=== PATIENT | female | born 1990 | race Caucasian/White ===

== ENCOUNTER 2017-12-28 10:15 | Inpatient (IN) | payer BC ==
[~2017-12-28] VITALS: Ht 165.1 cm; Wt 74.8 kg
[2017-12-28] VITALS (18 sets, daily range): BP systolic 80–106; BP diastolic 49–91; Ht 165.1 cm; Wt 74.8 kg
[~2017-12-28 10:15] MED LIST: ACET-2007 PO; DOCU240C67 PO; IBUP800T37 PO; Lanolin TP; PER PO; PREN-127 PO
[2017-12-28] MEDS ORDERED: FAMOTIDINE(*) 20MG/50ML PREMIX 50 ML IVPB PRN (10:16)
[2017-12-28] MEDS ORDERED: OXYTOCIN 30 UNIT/LR 500 ML 500 ML IV PRN (10:16)
[2017-12-28] MEDS ORDERED: fentaNYL CITR 100 MCG/2 ML AMP IVP PRN (10:20)
[2017-12-28] MEDS ORDERED: METOCLOPRAMIDE 10 MG/2 ML SDV IVP PRN (10:20)
[2017-12-28] MEDS ORDERED: FLUSH 10 ML SYR IVP PRN (10:20)
[2017-12-28] MEDS ORDERED: LIDOCAINE 1% LOCAL 300 MG/30ML INJ PRN (10:20)
[2017-12-28] MEDS ORDERED: cefOXitin/DEX(*) 2GM/50ML PREM 50 ML IVPB PRN (10:20)
[2017-12-28] MEDS: LR(*) 1000 ML BAG 1,000 ML IV SCH ×2 (11:08→15:47)
[2017-12-28 11:16] LABS: PLATELET COUNT, AUTOMATED 230 K/uL (150-450)
[2017-12-28] MEDS ORDERED: fentaNYL CITR 100 MCG/2 ML AMP IT PRN (12:55)
[2017-12-28] MEDS ORDERED: LIDO/EPI 2% MPF 1:200,000 20ML EPI PRN (12:55)
[2017-12-28] MEDS ORDERED: FENTANYL/ROPIVACAINE 100 ML BAG EPI PRN (12:55)
[2017-12-28] MEDS ORDERED: BUPIVACAINE 0.5% INJ 30ML VIAL EPI PRN (12:55)
[2017-12-28] MEDS ORDERED: LIDOCAINE/PF 2% 200MG/10ML AMP 200 MG/10 ML AMPUL EPI PRN (12:55)
[2017-12-28] MEDS ORDERED: BUPIVACAINE 0.25% MPF INJ EPI PRN (12:55)
[2017-12-28] MEDS ORDERED: EPIDURAL KEYS XX PRN (14:00)
[2017-12-28] MEDS ORDERED: LR(*) 1000 ML BAG 1,000 ML IV SCH (14:48)
[2017-12-28] MEDS ORDERED: cefOXitin/DEX(*) 2GM/50ML PREM 50 ML IVPB ONE (14:50)
[2017-12-28] MEDS ORDERED: CITRIC ACID/SOD CITRATE 30 ML PO ONE (14:50)
[2017-12-28] MEDS ORDERED: FAMOTIDINE 20 MG/50 ML PREMIX IVPB ONE (14:50)
[2017-12-28] MEDS ORDERED: MORPHINE PF 5 MG/10 ML AMP ONE (15:43)
[2017-12-28] MEDS ORDERED: fentaNYL CITR 100 MCG/2 ML AMP ONE (15:44)
[2017-12-28] MEDS ORDERED: OXYTOCIN 10 UNIT/ML SDV ONE (15:59)
[2017-12-28] MEDS ORDERED: KETOROLAC 30 MG/ML VIAL ONE (15:59)
--- NOTE | 2017-12-28 16:28 | Anesthesia OB Pre-Anes Eval ---
History of Present Illness OB Anesthesia Diagnosis: induction - medical EDC: Dec 28, 2017 : 3 Para: 1 Pain Ratin Heart Tones: 128 Result Diagram: 12/28/17 1107 Height (Inches): 65.00 Weight (Pounds): 165 BMI Calculated: 27.45 Past Medical History Medical History: no pertinent history Surgical History: noncontributory, Previous Anesthesia: epidural Attended Childbirth Classes?: No Hx Anesthesia Reactions: No Hx Family Anesthesia Reaction: No Home Meds Active Scripts Oxycodone/Acetaminophen (OXYCODONE/ACETAMINOPHEN 5MG/325 MG) 5 Mg/325 Mg Tab, 1- 2 TAB PO Q4H Y for PAIN, #10 TAB Prov:BETTY CAMACHO MD 10/05/15 [Lanolin] 7 GM OINT No Conflict Check, 0 GM TP PRN Y for DISCOMFORT FOR NURSING MOTHERS, TUBE Prov:BETTY CAMACHO MD 10/05/15 Ibuprofen (IBUPROFEN) 800 Mg Tablet, 800 MG PO Q8H@02,10,18 for 10 Days, TAB Prov:BETTY CAMACHO MD 10/05/15 Docusate Calcium (DOCUSATE CALCIUM) 240 Mg Capsule, 240 MG PO BID for 10 Days, CAPSULE Prov:BETTY CAMACHO MD 10/05/15 Acetaminophen (MAPAP) 325 Mg Tablet, 0 MG PO Q4H Y for PAIN for 10 Days, TAB Prov:BETTY CAMACHO MD 10/05/15 Reported Medications Vits W-Ca,Fe,Fa(<1MG) ( VITAMINS) 1 Each Tablet, 1 EACH PO DAILY, TAB 10/01/15 Allergies: Coded Allergies: No Known Drug Allergies (Unverified , 10/01/15) Anesthesia OB ROS Airway Class: ll GI ROS: NPO Last Solids Date: Dec 28, 2017 Last Solids Time: 14:00 ASA Classification: 2 Assessment and Plan Anesthesia Plan: WILEY STARR CRNA Dec 28, 2017 16:28
[2017-12-28] MEDS ORDERED: ONDANSETRON 4 MG/2 ML VIAL ONE (16:30)
[2017-12-28] MEDS ORDERED: ACETAMINOPHEN 325 MG TAB PO PRN (16:40)
[2017-12-28] MEDS ORDERED: ZOLPIDEM TARTRATE 5 MG TAB PO PRN (16:40)
[2017-12-28] MEDS ORDERED: OXYTOCIN 30 UNIT/D5LR 500 ML 500 ML IV PRN (16:40)
[2017-12-28] MEDS ORDERED: INFLUENZA VIRUS VAC 0.5 ML SYR IM ONE (16:40)
[2017-12-28] MEDS ORDERED: ONDANSETRON 4 MG/2 ML VIAL IV PRN (16:40)
[2017-12-28] MEDS ORDERED: PROMETHAZINE 25 MG/ML 1 ML AMP IVP PRN (16:40)
[2017-12-28] MEDS ORDERED: LANOLIN OINT 7 GM TUBE TP PRN (16:40)
--- NOTE | 2017-12-28 16:40 | History & Physical ---
History of Present Illness Age of Patient: 27 : 3 Para or TPAL: 1 EDC per LMP: Dec 28, 2017 Estimated Gestational Age: 40.2 Chief Complaint Labor/ History of Present Illness Presented to office today potentially in labor with report of contractions since last night and painful. NST in office showed contractions every 5 min and cervix was 2-3 cm dilated, posterior and soft. She was sent to [facility] for potential labor. When I presented later, exam was roughly still the same and discussion of pros/cons of labor augmentation was initiated. She ultimately elected to forgo any further attempts at vaginal delivery and proceed with . Risks/benefits were explained in detail and she consents. Past Medical, Surgical, Family and Obstetric Histories reviewed. Please see ACOG chart. History Allergies: Coded Allergies: No Known Drug Allergies (Unverified , 10/01/15) Social History: No T/E/D. Med Rec Home Meds Active Scripts Oxycodone/Acetaminophen (OXYCODONE/ACETAMINOPHEN 5MG/325 MG) 5 Mg/325 Mg Tab, 1- 2 TAB PO Q4H Y for PAIN, #10 TAB Prov:BETTY CAMACHO MD 10/05/15 [Lanolin] 7 GM OINT No Conflict Check, 0 GM TP PRN Y for DISCOMFORT FOR NURSING MOTHERS, TUBE Prov:BETTY CAMACHO MD 10/05/15 Ibuprofen (IBUPROFEN) 800 Mg Tablet, 800 MG PO Q8H@02,10,18 for 10 Days, TAB Prov:BETTY CAMACHO MD 10/05/15 Docusate Calcium (DOCUSATE CALCIUM) 240 Mg Capsule, 240 MG PO BID for 10 Days, CAPSULE Prov:BETTY CAMACHO MD 10/05/15 Acetaminophen (MAPAP) 325 Mg Tablet, 0 MG PO Q4H Y for PAIN for 10 Days, TAB Prov:BETTY CAMACHO MD 10/05/15 Reported Medications Vits W-Ca,Fe,Fa(<1MG) ( VITAMINS) 1 Each Tablet, 1 EACH PO DAILY, TAB 10/01/15 Review of Systems All Systems Reviewed/Normal: Yes, Except as Noted Exam General Exam Vital Signs Vital Signs Date Time Temp Pulse Resp B/P (MAP) Pulse Ox O2 Delivery O2 Flow Rate FiO2 12/28/17 11:10 98.0 88 16 99/67 (78) General Apperance: Alert/Awake/No Acute Distress Neuro: No Gross deficits Eyes: Normal Extraocular Movement & Vison Cardiovascular: Regular Rate and Rhythm Respiratory: No Respiratory Distress Abdomen: Soft, Non-Tender, Non-Distended, Gravid - Non-Tender Integumentary: Skin Intact without Lesions or Rash Psychological: Alert & Oriented X3, Appropriate Mood & Affect Cervical Dialation: 2 Cervical Effacement (%): 80 Cervical Consistency: Soft Cervical Position: Posterior Station: -2 Presentation: Vertex Fetus Heart Tone Variabilty: Moderate FHT Accelerations: 15X15 FHT Category: I Medical Decision Making Data Points Result Diagram: 12/28/17 1107 VTE Prophylasis: Adult Deep Vein Thrombosis/Pulmonary: No Pharmacological Contraindicati: Pt at Low Risk for VTE Mechanical Contraindications: Pt at Low Risk for VTE Assessment and Plan Problems: (1) Previous section Assessment & Plan: Will proceed with c/s as planned. (2) Labor without complication CARLOTA POSEY MD Dec 28, 2017 16:40
--- NOTE | 2017-12-28 18:14 | Post Operative Note ---
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
[2017-12-28] MEDS: DLR(*) 1000 ML BAG 1,000 ML IV PRN (19:45)
[2017-12-28] MEDS ORDERED: NALBUPHINE HCL 10 MG/ML AMP IVP PRN (20:25)
[2017-12-28] MEDS: DOCUSATE CALCIUM 240 MG CAP PO SCH (21:00)
[2017-12-28] MEDS: FAMOTIDINE 20 MG TAB PO SCH (21:00)
[2017-12-28] MEDS ORDERED: KETOROLAC 30 MG/ML VIAL IVP SCH (22:00)
[2017-12-28] MEDS ORDERED: LR(*) 1000 ML BAG 2,000 ML ONE (22:18)
[2017-12-28] MEDS: KETOROLAC 30 MG/ML VIAL IVP SCH (23:49)
[2017-12-29] MEDS: DLR(*) 1000 ML BAG 1,000 ML IV PRN (02:03)
[2017-12-29 04:43] VITALS: BP 86/53
[2017-12-29] MEDS: KETOROLAC 30 MG/ML VIAL IVP SCH ×2 (06:11→11:40)
[2017-12-29 06:14] LABS: PLATELET COUNT, AUTOMATED 176 K/uL (150-450)
[2017-12-29 06:15] VITALS: BP 96/58
[2017-12-29] MEDS: DOCUSATE CALCIUM 240 MG CAP PO SCH ×2 (08:33→20:05)
[2017-12-29] MEDS: FAMOTIDINE 20 MG TAB PO SCH ×2 (08:33→21:00)
--- NOTE | 2017-12-29 09:03 | OB/GYN Progress Note ---
OB Subjective Progress Notes Subjective Doing well. Little pain currently. Bleeding light. GI: NEG Nausea Pain: Mild OB Objective Physical Exam Vital Signs Date Time Temp Pulse Resp B/P (MAP) Pulse Ox O2 Delivery O2 Flow Rate FiO2 12/29/17 08:42 75 96 Room Air 12/29/17 06:15 98.3 12 96/58 (71) 12/28/17 19:45 1.0 General Appearance: Alert/Awake/No Acute Distress Neurological: No Gross deficits Eyes: Normal Extraocular Movement & Vison Cardiovascular: Normal Rhythm & Peripheral Pulses, Regular Rate and Rhythm Respiratory: No Respiratory Distress, Clear to Auscultation Abdomen: Soft, Non-Tender, Non-Distended, Fundus Firm, Non-Tender Incision: Clean, Dry, Intact, Dermabond Integumentary: Skin Intact without Lesions or Rash Psychological: Alert & Oriented X3, Appropriate Mood & Affect Result Diagram: 12/29/17 0520 Assessment and Plan OPERATIONS SUPERINTENDENT Plan: Routine Post- Care, Routine Post-Op Care Problems: (1) Previous section (2) Labor without complication (3) Status post delivery Status: Acute Assessment & Plan: Nye out today, ambulate, shower. Pain medication if needed. CARLOTA POSEY MD Dec 29, 2017 09:03
[2017-12-29 11:00] VITALS: BP 103/53
[2017-12-29 15:00] VITALS: BP 88/60
--- NOTE | 2017-12-29 17:26 | OPERATIVE REPORT 1 ---
EVENT DATE: December 28, 2017 SURGEON: Aly Gonzalez MD ANESTHESIA: Spinal. PREOPERATIVE DIAGNOSES 1. Previous section. 2. A 40-week intrauterine , in early labor. POSTOPERATIVE DIAGNOSES 1. Previous section. 2. A 40-week intrauterine , in early labor. PROCEDURE PERFORMED Repeat low transverse section via Pfannenstiel skin incision with scar revision. ESTIMATED BLOOD LOSS 500 mL FLUIDS Crystalloid 3300 mL IV. URINE OUTPUT 775 mL INDICATIONS Pleasant patient, 40 weeks' gestation, presented in early labor in the office. Her first delivery was by for a failure to progress, dilated to 6 cm, and arrest of descent. She had been considering a vaginal after ; however, after further evaluating on Labor and Delivery, she elected to proceed with repeat due to not being comfortable with the risks. She was, therefore, consented and prepped for . FINDINGS Female infant in cephalic presentation. Normal-appearing uterus, tubes, and ovaries. Apgars 8 and 9. Weight 3104 g. PROCEDURE IN DETAIL The patient presented to the operating suite, and spinal anesthetic was administered. She was placed in the dorsal supine position with a leftward tilt and prepped and draped in the usual sterile fashion. Using a knife, a Pfannenstiel skin incision was made dissecting out the previous scar and carried through to the underlying rectus fascia. This was nicked in the midline and extended laterally. The rectus muscles were dissected off superiorly and inferiorly and then in the midline with sharp dissection. We entered the abdomen, and the incision was extended superiorly and inferiorly, taking care to avoid injury to the underlying bladder. A bladder blade was inserted. This exposed the lower uterine segment. Vesicouterine peritoneum was elevated and extended laterally with the Metzenbaum scissors. A bladder flap was created digitally. Using a scalpel, a low transverse incision on the uterus was made and carried through to the intra- amniotic space. There was clear fluid upon amniotomy. A hand was inserted, and the 's head was elevated through the incision. Fundal pressure was applied. The 's head delivered atraumatically. Mouth and nose were bulb suctioned, followed by further fundal pressure effected delivery of the anterior and posterior shoulders, and the remainder of the infant followed without difficulty. Mouth and nose were again bulb suctioned. The cord was clamped and cut, and the infant was passed to the awaiting resuscitation team. Cord sample was obtained. The placenta was delivered manually. Uterus was exteriorized and cleared of all clots and debris. A uterine repair was performed with a #1 Monocryl in a running locking stitch. A second suture of the same type was used to imbricate the first layer, completing a two-layer closure. This was hemostatic upon completion. The uterus was returned to the abdomen, and bilateral pelvic gutters were irrigated and swept clear of clots and debris. The parietal peritoneum was repaired using a 3-0 Vicryl Plus in a running nonlocking stitch. Rectus muscles were reapproximated in the midline with the same stitch. Rectus muscles received cautery at a few capillary bleeders. The rectus fascia was repaired using an 0 Vicryl in a running nonlocking stitch. Subcuticular space was irrigated and swept clear of clots and debris. Capillary bleeders were cauterized while the space was closed with a 3-0 Vicryl Plus in a running nonlocking stitch. Skin was repaired with a 4-0 Monocryl simple subdermal and covered with Dermabond skin adhesive. She tolerated the procedure well. Sponge, lap, needle, and instrument counts were all correct times three. She was taken to Recovery in stable condition. ENOCH
[2017-12-29] MEDS: IBUPROFEN 800 MG TAB PO SCH (18:19)
[2017-12-29] MEDS: SIMETHICONE 80 MG CHEW CHEW PRN (20:42)
[2017-12-29 21:00] VITALS: BP 102/67
[2017-12-30] MEDS: IBUPROFEN 800 MG TAB PO SCH ×2 (02:09→10:03)
[2017-12-30 04:32] VITALS: BP 95/63
[2017-12-30] MEDS ORDERED: IBUP800T37 PO (07:12)
[2017-12-30] MEDS ORDERED: PER PO (07:12)
[2017-12-30] MEDS: DOCUSATE CALCIUM 240 MG CAP PO SCH (08:37)
[2017-12-30] MEDS: SIMETHICONE 80 MG CHEW CHEW PRN (08:37)
[2017-12-30] MEDS: FAMOTIDINE 20 MG TAB PO SCH (08:37)
[2017-12-30 09:08] VITALS: BP 99/68
--- NOTE | 2017-12-30 11:49 | OB/GYN Progress Note ---
OB Subjective Progress Notes Subjective Doing good this morning. Sleepy from baby feeding overnight. Reports minimal vaginal bleeding. Pain controlled with po pain medications. Tolerating po intake. Voiding with out any difficulty. GI: NEG Nausea, NEG Vomiting, NEG Flatus, NEG Bowel Movement : Voiding Well, Vaginal Bleeding, Scant Pain: Mild, Tolerating PO Pain Meds Neurological: No Headache, No Other Eyes: No Visual Disturbances OB Objective Physical Exam Vital Signs Date Time Temp Pulse Resp B/P (MAP) Pulse Ox O2 Delivery O2 Flow Rate FiO2 12/30/17 09:08 98.2 91 16 99/68 (78) 94 12/30/17 04:32 Room Air 12/28/17 19:45 1.0 General Appearance: Alert/Awake/No Acute Distress Neurological: No Gross deficits Eyes: Normal Extraocular Movement & Vison ENT: Normal Neck: No Masses Cardiovascular: Normal Rhythm & Peripheral Pulses, Regular Rate and Rhythm Respiratory: No Respiratory Distress, Clear to Auscultation Abdomen: Soft, Non-Tender, Non-Distended, Fundus Firm, Non-Tender Incision: Clean, Dry, Intact, Dermabond Musculoskeletal: No Weakness/Pain Extremities: No Cyanosis,Clubbing or Edema Integumentary: Skin Intact without Lesions or Rash Psychological: Alert & Oriented X3, Appropriate Mood & Affect Result Diagram: 12/29/17 0520 Assessment and Plan CUSTOMER CONSULTING MANAGER Assessment: Stable CUSTOMER CONSULTING MANAGER Plan: Routine Post-Op Care, Discharge Home Tomorrow Problems: (1) Status post delivery Status: Acute Assessment & Plan: Plan for discharge home today. Follow up with Dr. Gonzalez in 2 weeks. DENISHA LOTT DO Dec 30, 2017 11:49
[2017-12-30 13:05] VITALS: BP 102/67
[2017-12-30 15:55] VITALS: BP 98/68
[2017-12-30] MEDS ORDERED: MEASLES,MUMP,RUBELLA VAC 0.5ML SUBQ ONE (16:40)
[2017-12-30] MEDS ORDERED: DIPHTH/TETANUS/ACEL. PERTUSSIS IM ONLY ONE (16:40)
== END 2017-12-30 18:16 | disposition home or self-care (01) | DRG 766 ==
LOC: OB 10:15
PROVIDERS: ADMIT Obstetrics & Gynecology; ATTEND Obstetrics & Gynecology
PROC: 10D00Z1 Extraction of Products of Conception, Low, Open Approach (ICD-10-PCS; principal; 2017-12-28 16:34)
DX: O34.219 Maternal care for unspecified type scar from previous cesarean delivery (principal); Z3A.40 40 weeks gestation of pregnancy; Z37.0 Single live birth
CPT/HCPCS: 36415; 85025; 86850; 86900; 86901; J0694; J1885; J2270; J2405; J2590; J3010; J3490; J7120